=== PATIENT | male | born 1995 | race Caucasian/White ===

== ENCOUNTER 2020-12-24 17:00 | Inpatient (IN) | payer SELFPAY ==
[2020-12-24 17:03] VITALS: BP 116/70; PULSE 79; RESP 17; TEMP 36.9; O2SAT 94; BMI 28.5
[2020-12-24 22:00] VITALS: BP 116/70; PULSE 79; RESP 17; TEMP 36.9; O2SAT 94
[2020-12-25 06:00] VITALS: BP 93/60; PULSE 66; RESP 18; TEMP 36.8; O2SAT 95
--- NOTE | 2020-12-25 12:01 | P.HP_ITS ---
Providers/Chief Complaint Admitting Physician: Jeevan Sanderson MD Chief Complaint: DEPRESSION HPI NPU History of Present Illness Beni Garibay is a 25 year old male presented to the outside hospital endorsing suicidal thoughts/urges and some struggles with reported trauma from his childhood. He was transferred to [facility] and admitted to the neuropsychiatric unit for definitive treatment of those issues. He denied outpatient psychiatric services or inpatient psychiatric services in the past. He does say that he has had suicidal urges in the past, but he has never followed through, and yesterday was the first time that he had these kind of thoughts that felt that way, which is why he went to the hospital, but he reports that at this point he really feels that he needs to have therapy for t hings that have happened in his life and if after the therapy has concluded, he is not showing improvement, he would consider medication. He smokes about a half pack of cigarettes a day, denies alcohol, marijuana, or any other illicit drug use. He has never been to a rehab or had a DUI. He reports having some significant issues surrounding the fact that his mother left his father when they were in school. Initially he would not even specifically say what happened, he just kept referring to something his mother did to his father in their childhood. After the length of the interview, he eventually acknowledged she had started texting some other andre and ultimately left her dad, but it clearly left a huge impact on him. He reports that he had been visiting friends and he left and ended up going over an archway or walkway and started having these urges to jump, and he felt it was taking him significant energy to not want to do it. He reports that he does struggle with his job right now, reporting that his boss is kind of mean and continues to have upset feelings of his mother. We discussed the possibility for medications and the risks, benefits, and alternatives of different modalities of treatment, and he understood and agreed to proceed as is documented in this note. We agreed to observe him again overnight to make sure that there are no changes or any concerning behaviors, and then we would consider the possibility of discharge after that. PSYCHIATRIC HISTORY: As above. SUBSTANCE ABUSE HISTORY: As above. FAMILY HISTORY: He denies mental health issues, addiction issues, suicide attempts or completions, on either side of his family. DEVELOPMENTAL HISTORY: He denies any issues with his mother?s or delivery of him. He met all developmental milestones on time. He denies any speech therapy, learning support, emotional support, or special education classes. PSYCHOSOCIAL HISTORY: He endorses that his parents were together when he was born, and he has an older brother and a younger sister and brother that are products of that union. Neither parent has any other children. He endorses that his childhood was pretty good until the incident with his mother. He graduated from high school, got his class C license for driving. He endorses being a heterosexual with his longest relationship being two years. He has never been , he has never had childr en, he has never been in the , and he denies any mormon belief system. 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 or significant other in a house. LEGAL HISTORY: He denies any significant legal history or current legal peril. MEDICAL HISTORY: He denies any significant medical concerns. Meds NPU Home Medications Medication Instructions Recorded Confirmed Last Taken Type No Known Home Medications 12/24/20 12/24/20 Unknown History Allergies Allergy/AdvReac Type Severity Reaction Status Date / Time No Known Allergies Allergy Verified 12/24/20 17:26 Mental Status Exam MSE Comments: This is an overweight, white male, with hospital scrubs on with adequate grooming, and eye contact. No abnormal movements. Cooperative with exam in no acute distress. Speech was slightly decreased rate and volume. Mood described as I miss my dad; affect slightly subdued. Thought process, organized. Thought content: patient denied any suicidal or homicidal ideation, there were no delusions reported or noted, patient denied any auditory or visual hallucinations. Attention, concentration, and memory appear intact but were not formally tested. He is alert and oriented times three. Insight and judgment are fair and impulse control is fair. Vitals/I&O/Wt Last Vital Signs Temp 98.2 F 12/25/20 06:00 Pulse 66 12/25/20 06:00 Resp 18 12/25/20 06:00 BP 93/60 12/25/20 06:00 Pulse Ox 95 12/25/20 06:00 Weight last 48 hrs Weight 85.275 kg A&P Assessment and plan (1) Adjustment disorder with mixed disturbance of emotions and conduct: Status: Acute (2) Depression: Status: Acute (3) Anxiety: Status: Acute Additional A&P Information This is a 25 year old, white male, with significant impact from his parents splitting in his childhood with some depression and anxiety, who would be open to therapy as an initial approach to his mood and anxiety concerns with consideration of medication possibly in the future. RECOMMENDATION AND PLAN: 1. Continue current medication. 2. Encourage individual, group, and milieu therapy. 3. Continue q-15 minute checks for safety. 4. Will monitor overnight and if he continues to be interested in discharge for outpatient services, we will oblige him. Involuntary Hold Information 96 Hour Hold: 96 Hour Involuntary Admission: No Attestations NPU Medical Necessity Statement*: Inpatient hospitalization is medically necessary and the clinically appropriate intervention, at this time. We will monitor medications and make changes as indicated. Patient will be in the hospital for over two midnights. Likely length of stay is one to two days. Coding Level of Care Code Acute [facility] for [facility] Diagnoses Adjustment disorder with mixed disturbance of emotions and conduct F43.25 Depression F32.9 Anxiety F41.9
[2020-12-25 13:53] VITALS: BP 112/67; PULSE 73; RESP 14; TEMP 36.4; O2SAT 95
[2020-12-25 20:26] VITALS: BP 113/73; PULSE 61; RESP 18; TEMP 37.1; O2SAT 98
[2020-12-26 06:00] VITALS: BP 112/72; PULSE 78; RESP 16; TEMP 36.8; O2SAT 99
--- NOTE | 2020-12-26 11:17 | PM.NDC ---
Reason for Visit Reason for Visit: DEPRESSION Involuntary Hold Information 96 Hour Hold: 96 Hour Involuntary Admission: No Discharge Data Vitals: Last Vital Signs Temp 98.2 F 12/26/20 06:00 Pulse 78 12/26/20 06:00 Resp 16 12/26/20 06:00 BP 112/72 12/26/20 06:00 Pulse Ox 99 12/26/20 06:00 Discharge Plan Discharge Patient Disposition: Home Condition: Stable Prescriptions: No Action No Known Home Medications RF: 0 Referrals: [facility] [Other] Patient Instructions: Opioid Safety Coding Level of Care Code Acute [facility] DC note
--- NOTE | 2020-12-26 14:05 | PM.NDC ---
Diagnoses at Discharge Discharge Diagnosis (1) Adjustment disorder with mixed disturbance of emotions and conduct: Status: Acute (2) Depression: Status: Acute (3) Anxiety: Status: Acute Reason for Visit Reason for Visit: DEPRESSION Brief History: History of Present Illness Beni Garibay is a 25 year old male presented to the outside hospital endorsing suicidal thoughts/urges and some struggles with reported trauma from his childhood. He was transferred to [facility] and admitted to the neuropsychiatric unit for definitive treatment of those issues. He denied outpatient psychiatric services or inpatient psychiatric services in the past. He does say that he has had suicidal urges in the past, but he has never followed through, and yesterday was the first time that he had these kind of thoughts that felt that way, which is why he went to the hospital, but he reports that at this point he really feels that he needs to have therapy for things that have happened in his life and if after the therapy has concluded, he is not showing improvement, he would consider medication. He smokes about a half pack of cigarettes a day, denies alcohol, marijuana, or any other illicit drug use. He has never been to a rehab or had a DUI. He reports having some significant issues surrounding the fact that his mother left his father when they were in school. Initially he would not even specifically say what happened, he just kept referring to something his mother did to his father in their childhood. After the length of the interview, he eventually acknowledged she had started texting some other andre and ultimately left her dad, but it clearly left a huge impact on him. He reports that he had been visiting friends and he left and ended up going over an archway or walkway and started having these urges to jump, and he felt it was taking him significant energy to not want to do it. He reports that he does struggle with his job right now, reporting that his boss is kind of mean and continues to have upset feelings of his mother. We discussed the possibility for medications and the risks, benefits, and alternatives of different modalities of treatment, and he understood and agreed to proceed as is documented in this note. We agreed to observe him again overnight to make sure that there are no changes or any concerning behaviors, and then we would consider the possibility of discharge after that. PSYCHIATRIC HISTORY: As above. SUBSTANCE ABUSE HISTORY: As above. FAMILY HISTORY: He denies mental health issues, addiction issues, suicide attempts or completions, on either side of his family. DEVELOPMENTAL HISTORY: He denies any issues with his mother?s or delivery of him. He met all developmental milestones on time. He denies any speech therapy, learning support, emotional support, or special education classes. PSYCHOSOCIAL HISTORY: He endorses that his parents were together when he was born, and he has an older brother and a younger sister and brother that are products of that union. Neither parent has any other children. He endorses that his childhood was pretty good until the incident with his mother. He graduated from high school, got his class C license for driving. He endorses being a heterosexual with his longest relationship being two years. He has never been , he has never had children, he has never been in the , and he denies any denominational belief system. 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 or significant other in a house. LEGAL HISTORY: He denies any significant legal history or current legal peril. MEDICAL HISTORY: He denies any significant medical concerns. Hospital Course Hospital Course He quickly admitted to the individual, group milieu therapy divided. He was open to the possibility of medication but wanted to work on these issues outpatient. He reported being open to considering pharmacologic interventions then. He was not endorsing any suicidality and a limited fashion for safety outside the hospital. At the outside hospital, patient had routine laboratory studies which were within normal limits except for few outliers. Additionally there was a general medical evaluation which was also within normal limits and revealed no new acute processes. Discharge Summary: At the time of discharge, he denied psychosis or loudly. Mood and anxiety were well managed. Patient endorsed a plan to follow-up with the aftercare recommendations of the treatment team. Patient was evaluated and deemed to be absent credible lethality, and was a voluntary patient who was not interested in inpatient services, so was discharged. Involuntary Hold Information 96 Hour Hold: 96 Hour Involuntary Admission: No Mental Status Exam MSE Comments: This is an overweight, white male, with hospital scrubs on with adequate grooming, and eye contact. No abnormal movements. Cooperative with exam in no acute distress. Speech was more normal rate and volume. Mood described as better; affect brighter. Thought process, organized. Thought content: patient denied any suicidal or homicidal ideation, there were no delusions reported or noted, patient denied any auditory or visual hallucinations. Attention, concentration, and memory appear intact but were not formally tested. He is alert and oriented times three. Insight and judgment are fair and impulse control is fair. Discharge Data Vitals: Last Vital Signs Temp 98.2 F 12/26/20 06:00 Pulse 78 12/26/20 06:00 Resp 16 12/26/20 06:00 BP 112/72 12/26/20 06:00 Pulse Ox 99 12/26/20 06:00 Discharge Plan Discharge Patient Disposition: Home Condition: Stable Prescriptions: Continued No Known Home Medications RF: 0 Discharge Orders: Discharge Order (Routine); Ordered 12/26/20 Ordered By: Jeevan Sanderson Referrals: [facility] [Other] Discharge Diet: Regular Discharge Activity: Resume usual activity Patient Instructions: Opioid Safety Discharge Attestations NPU Time Spent in Discharge Care*: less than 30 min Specific Discharge Activities: Specific discharge activities: educating patient, discussing with manager rn case/social workers/dc planners, documenting/other paperwork and evaluating patient/reviewing data Coding Level [facility] Care Code [facility] note Diagnoses Adjustment disorder with mixed disturbance of emotions and conduct F43.25 Depression F32.9 Anxiety F41.9
[2020-12-26 14:16] VITALS: BP 112/72; PULSE 78; RESP 16; TEMP 36.8; O2SAT 99
== END 2020-12-26 16:15 | disposition home or self-care (01) | DRG 882 ==
PROVIDERS: Admitting Provider Psychiatry & Neurology Psychiatry; Visit Provider Psychiatry & Neurology Psychiatry
DX: F43.25 Adjustment disorder with mixed disturbance of emotions and conduct (principal); F32.9 Major depressive disorder, single episode, unspecified; F41.9 Anxiety disorder, unspecified